=== PATIENT | female | born 1985 | race Caucasian/White ===

== ENCOUNTER 2024-02-25 19:23 | Outpatient (REF) | payer MEDICARE, MEDICAID, SELFPAY ==
[2024-02-26 11:07] LABS: Bacterial Vaginosis PCR POSITIVE (Negative); Candida Group PCR NOT DETECTED (Not Detect); Candida glab krusei PCR NOT DETECTED (Not Detect); Trichomonas vaginalis PCR NOT DETECTED (Not Detect)
[2024-03-04 01:14] LABS: HPV 16 RNA DETECTED (NOT DETECTED); HPV mRNA E6/E7 Detected (Not Detected)
== END 2024-02-25 19:24 | disposition home or self-care (01) ==
LOC: HO.HHCLNP 19:23
PROVIDERS: Visit Provider Advanced Practice Midwife
DX: R87.612 Low grade squamous intraepithelial lesion on cytologic smear of cervix (LGSIL) (principal); R87.810 Cervical high risk human papillomavirus (HPV) DNA test positive; N89.8 Other specified noninflammatory disorders of vagina
CPT/HCPCS: 0352U; 36415; 87624; 87625; 88175

== ENCOUNTER 2025-05-31 09:41 | Outpatient (REF) | payer MEDICARE, MEDICAID, SELFPAY ==
--- OUTSIDE RECORDS SUMMARY | 2025-05-31 09:30 | XMS_ITS | Encounter Summary ---
Author Organization [employer] Address [address] [place] [address] 7[address] [place] [address] Care Team Providers Care Informatics Nurse Specialist Name Role Phone Riki Padilla MD Primary Care Prov ider Reason for Visit * Reason Comments OBAT Encounter Details Date Type Department Care Team (Latest Contact Info) Description 05/31/2025 9:30 AM EDT Office Visit [facility] [address] [place] [address] Janes Christianson MD [address] [place] [address] Uncomplicated opioid dependence (CMS/HCC) (Primary Dx) Social History Tobacco Use Types Packs/Day Years Used Date Smoking Tobacco: Never Smokeless Tobacco: Never Alcohol Use Standard Drinks/Week Comments Never 0 (1 standard drink = 0.6 oz pur e alcohol) Depression Answer Date Recorded Patient Health Questionnaire-9 Score 17 03/23/2024 Patient Health Questionnaire-9 Score 17 03/23/2024 Last PHQ-9: Questionnaire Data Not on file 0 03/23/2024 Depression Answer Date Recorded Patient Health Questionnaire-2 Score 5 03/23/2024 Comments No Sex and Gender Information Value Date Recorded Sex Assigned at Female 07/02/2022 10:34 AM EDT Legal Sex Female 10:34 AM EDT Gender Identity Female 07/02/2022 10:34 AM EDT Sexual Orientation Bisexual 07/02/2022 10 :34 AM EDT documented as of this encounter Progress Notes * Janes Christianson MD - 05/31/2025 9:30 AM EDT Patient here today for Opioid Dependence RV. Patient on current Suboxone dose of 16/4 mg on an every 8 week schedule. Pt has been in the program for 6 years 11 month. Induction date: 06/17/18 (Has been on Suboxone since 2013). Patient actively enrolled in behavioral health services, sees therapist Indu Kent at [facility] on a weekly basis. MIGUE CORTES reviewed by provider. Control Method: States not engaged in sex currently; declined BCM; last Depo-Provera was on 02/24/2024 Long overdue for LFT (encouraged to get labs done today) Hep B immune Hep A #2 given 03/23/2019 LAST OBAT VISIT 03/08/2025 UTOX NOT CHECKED TODAY Patient presents for OUD OBAT visit MAT at [facility] for 6 years; previously at [facility] for 6 years Doing well overall without cravings or relapse Was on Depo-Provera for BCM, but last received 02/2024; states she is not engaged in sexual intercourse at this time [place] her libido went down after starting Depo-Provera (she was also started on stimulant medicationfor ADD) Has a teenage daughter (in IEP) Suboxone dosing schedule of 16/4mg daily and management of side effects reviewed Recovery support, harm reduction, and behavioral health attendance reviewed Patient expressed understanding and agreement with continuing plan of care Previously had LSIL with HPV+ in 04/2021 Then ASCUS with HPV+ in 12/2022 Most recently NILM with HPV+ in 02/2024 Previously referred to Gyne for colposcopy with Dr. Abdias Roach at [facility] (referral info provided for the patient) Follow up in 12 weeks due to holiday schedule TODAY OBAT VISIT 05/31/2025 UTOX: POS BUP, AMP NEG FOR ALL OTHER SUBSTANCES Patient presents for OUD OBAT visit MAT at [facility] for 6 years; previously at [facility] for 6 years Doing well overall without cravings or relapse Was on Depo-Provera for BCM, but last received 02/2024; states she is not engaged in sexual intercourse at this time [place] her libido went down after starting Depo-Provera (she was also started on stimulant medicationfor ADD) Has a teenage daughter (in IEP) Suboxone dosing schedule of 16/4mg daily and management of side effects reviewed Recovery support, harm reduction, and behavioral health attendance reviewed Patient expressed understanding and agreement with continuing plan of care Previously had LSIL with HPV+ in 04/2021 Then ASCUS with HPV+ in 12/2022 Most recently NILM with HPV+ in 02/2024 Previously referred to Gyne for colposcopy with Dr. Abdias Roach at [facility] (referral info provided for the patient) Traveling outside the country next month Follow up in 8 weeks Review of Systems Psychiatric/Behavioral: Negative for behavioral problems and dysphoric mood. The patient is not nervous/anxious. Physical Exam Constitutional: Appearance: Normal appearance. Pulmonary: Effort: Pulmonary effort is normal. Neurological: Mental Status: She is alert. Psychiatric: Mood and Affect: Mood normal. Behavior: Behavior normal. Whitney was seen today for obat. Diagnoses and all orders for this visit: Uncomplicated opioid dependence (CMS/HCC) (Primary) - POCT CELIO-14 Urine Drug Screen - Hepatic Function Panel; Future Patient presents for a routine OUD OBAT visit Discussed treatment options for opioid dependence Patient is tolerating current treatment of Buprenorphine/Naloxone SL Discussed behavioral modification and accessing services Counseling provided with a focus on support system, tools for achieving/maintaining recovery Reviewed barriers for these goals Discussed strategies to address when faced situations that may trigger use Continue with current visit schedule Check LFT Narcan use discussed [place] reviewed Reviewed risk assessment for family planning, STI and PrEP Follow up in 8 weeks This information has been disclosed to you from records protected by federal confidentiality rules (42 CFR Part 2). The federal rules prohibit you from making any further disclosure of information inthis record that identifies a patient as having or having had a substance use disorder either directly, by reference to publicly available information, or through verification of such identification by another person unless further disclosure is expressly permitted by the written consent of the individual whose information is being disclosed or as otherwise permitted by (see2.3.1). The federal rules restrict any use of the information to investigate or prosecute with regard to a crime any patient with a substance use disorder, except as provided at 2.12??(5) and 2.65. documented in this encounter Plan of Treatment Upcoming Encounters Date Type Department Care Team (Late st Contact Info) Description 07/26/2025 10:00 AM EST Office Visit [facility] [address] [place] [address] Janes Christianson MD [address] [place] [address] Scheduled Orders Name Type Priority Associated Diagnoses Orde r Schedule Hepatic Function Panel Lab Routine Uncomplicated opioid dependence (CMS/HCC) Expected: 05/31/2025 (Approximate), Expires: 05/31/2026 documented as of this encounter Goals Goal Patient Goal Type Associated Problems Recent Progress Patient-Stated? Author Look into education opportunities. General Yes Malgorzata Morales RN documented as of this encounter Procedures Procedure Name Priority Date/Time Associated Diagnosis Comments POCT CELIO-14 URINE DRUG SCREEN Routine 05/31/2025 9:27 AM EDT Uncomplicated opioid dependence (CMS/HCC) documented in this encounter Results * (ABNORMAL) POCT CELIO-14 Urine Drug Screen (05/31/2025 9:27 AM EDT) THC Negative Negative Cocaine Screen, Urine Negative Negative Opiate Screen, Urine Negative Negative Methamphetamine Screen Urine Negative Negative Amphetamine Screen, Urine Positive(A) Negative Benzodiazepines Screen, Urine Negative Negative Barbiturate Screen, Urine Negative Negative Methadone Screen, Urine Negative Negative Buprenophine Screen, Urine Positive(A) Negative TCA, Urine Negative Negative MDMA Urine Negative Negative ng/mL Oxycodone Screen, Urine Negative Negative Phencyclidine (PCP), Urine Negative Negative Fentanyl, Urine Negative Negative Urine Urine specimen obtained by clean catch procedure / Unknown 05/31/2025 9:27 AM EDT us Janes Christianson MD POINT OF CARE TEST ENTER/EDIT OR DERABLES Final Result documented in this encounter Visit Diagnoses Diagnosis Uncomplicated opioid dependence (CMS/HCC) (HCC)- Primary documented in this encounter Additional Health Concerns Assessment Noted Time PHQ-9 Depression Total Score: 17 07/22/2 024 11:24 AM EDT documented as of this encounter Care Teams Informatics Nurse Specialist Relationship Specialty Start Date End Date Riki Padilla MD [address] [place] [phone] PCP - General Internal Medicine 01/26/20 documented as of this encounter
--- OUTSIDE RECORDS SUMMARY | 2025-05-31 10:34 | XMS_ITS | Encounter Summary ---
Author Organization [employer] Address [address] [place] [address] Care Team Providers Care Apprentice Plant Attendant Name Role Phone Riki Padilla MD Primary Care Prov ider Encounter Details Date Type Department Care Team (Late Contact Info) Description 02/04/2023 Abstract [facility] PEDS [address] [place] [address] Riki Padilla MD [address] [place] [address] Social History Tobacco Use Types Packs/Day Years Used Date Smoking Tobacco: Never Smokeless Tobacco: Never Comments No Sex and Gender Information Value Date Recorded Sex Assigned at Female 07/02/2022 10:34 AM EDT Legal Sex Female 10:34 AM EDT Gender Identity Female 07/02/2022 10:34 AM EDT Sexual Orientation Bisexual 07/02/2022 10 :34 AM EDT COVID-19 Exposure Response Date Recorded In the last 10 days, have yo u been in contact with someone who was confirmed or suspected to have Coronavirus/COVID-19? No / Unsure 01/29/2023 10:45 AM EDT documented as of this encounter Plan of Treatment Upcoming Encounters Date Type Department Care Team (Late Contact Info) Description 07/26/2025 10:00 AM EST Office Visit [facility]ED[facility] [address] [place], [place] [phone] Janes Christianson MD [address] [place] [address] [phone] documented as of this encounter Visit Diagnoses Not on filedocumented in this encounter Care Teams Apprentice Plant Attendant Relationship Specialty Start Date End Date Riki Padilla MD [address] [place] [address] PCP - General Internal Medicine 01/26/20 documented as of this encounter
--- OUTSIDE RECORDS SUMMARY | 2025-05-31 10:34 | XMS_ITS | Encounter Summary ---
Author Organization [employer] Address [address] [place] [address] Care Team Providers Care Securities Broker Name Role Phone Riki Padilla MD Primary Care Prov ider Reason for Visit * Reason Comments Med Refill Encounter Details Date Type Department Care Team (Late st Contact Info) Description 05/25/2025 Refill [facility]EDS [address] [place] [address] Riki Padilla MD [address] [place] [address] Social History Tobacco Use Types Packs/Day Years [...] AM EDT documented as of this encounter Miscellaneous Notes * Telephone Encounter - Hayde Draper - 05/28/2025 8:23 AM EDT Tc fom pt requesting a call back to discuss update on refill Contact pt at [phone] documented in this encounter Plan of Treatment Upcoming Encounters Date Type Department Care Team ([facility] st Contact Info) Description 07/26/2025 10:00 AM EST Office Visit [facility] MED & PEDS [address] [place], [place] [phone] Janes Christianson MD [address] [place] [address] documented as of this encounter Goals Goal Patient Goal Type Associated Problems Recent Progress Patient-Stated? Author Look into education opportunities. General Yes Malgorzata Morales, RN documented as of this encounter Visit Diagnoses Not on filedocumented in this encounter Additional Health Concerns Assessment Noted Time PHQ-9 Depression Total Score: 17 024 11:24 AM EDT documented as of this encounter Care Teams Securities Broker Relationship Specialty Start Date End Date Riki Padilla MD [address] [place], [place] [phone] PCP - General Internal Medicine 01/26/20 documented as of this encounter
--- OUTSIDE RECORDS SUMMARY | 2025-05-31 10:34 | XMS_ITS | Encounter Summary ---
Author Organization [employer] Address [address] [place] [address] Care Team Providers Care President + Publisher Name Role Phone Riki Padilla MD Primary Care Prov ider Reason for Visit * Reason Comments Med Refill Encounter Details Date Type Department Care Team (Late st Contact Info) Description 01/22/2025 Refill [facility] PEDS [address] [place] [address] Riki Padilla MD [address] [place] [address] Social History Tobacco Use Types Packs/Day Years [...] Description 07/26/2025 10:00 AM EST Office Visit [facility]EDS [address] [place] [address] Janes Christianson MD [address] [place] [address] documented as of this encounter Goals Goal Patient Goal Type Associated Problems Recent Progress Patient-Stated? Author Look into education opportunities. General Yes Malgorzata Morales RN documented as of this encounter Visit Diagnoses Not on filedocumented in this encounter Additional Health Concerns Assessment Noted Time PHQ-9 Depression Total Score: 17 024 11:24 AM EDT documented as of this encounter Care Teams President + Publisher Relationship Specialty Start Date End Date Riki Padilla MD [address] [place] [address] PCP - General Internal Medicine 01/26/20 documented as of this encounter
--- OUTSIDE RECORDS SUMMARY | 2025-05-31 10:34 | XMS_ITS | Encounter Summary ---
Author Organization [employer] Address [address] [place] [address] [address] [place] [address] Care Team Providers Care Hand Deicer Element Winder Name Role Phone Riki Padilla MD Primary Care Prov ider Encounter Details Date Type Department Care Team (Latest Contact Info) Description 05/31/2025 Travel Social History Tobacco Use Types Packs/Day Years [...] Description 07/26/2025 10:00 AM EST Office Visit [facility] & PEDS [address] [place] [address] Janes Christianson MD [address] [place], [place] [phone] documented as of this encounter Goals Goal Patient Goal Type Associated Problems Recent Progress Patient-Stated? Author Look into education opportunities. General Yes Malgorzata Morales, RN documented as of this encounter Visit Diagnoses Not on filedocumented in this encounter Additional Health Concerns Assessment Noted Time PHQ-9 Depression Total Score: 17 024 11:24 AM EDT documented as of this encounter Care Teams Hand Deicer Element Winder Relationship Specialty Start Date End Date RobertsRiki Jaquez MD [address] [place] [phone] PCP - General Internal Medicine 01/26/20 documented as of this encounter
--- OUTSIDE RECORDS SUMMARY | 2025-05-31 10:34 | XMS_ITS | Encounter Summary ---
Author Organization [employer] Address [address] [facility] [address]t [place] [address] Care Team Providers Care Patient Observer Name Role Phone Riki Padilla MD Primary Care Prov ider Reason for Referral * Consultation (Urgent) - Closed Specialty Diagnoses / Procedures Referred By Contac t Referred To Contact Obstetrics and Gynecology Diagnoses Cervical high risk human papillomavirus (HPV) DNA test positive Jessica Rodrigues CNM [address] [place] [address] Phone: tel: fax: [facility] [address] (Main Hospital Entrance) [place], [place] Phone: tel: fax: Referral ID Status Reason Start Date Expiration Date V isits Requested Visits Authorized [id number] Closed Specialty Services Required 03/04/2024 03/04/2025 1 1 Encounter Details Date Type Department Care Team (Late st Contact Info) Description 03/04/2024 Orders Only [facility] [address] [place] [address] Jessica Rodrigues CNM [address] [place] [address] Cervical high risk human papillomavirus (HPV) DNA test positive (Primary Dx) Social History Tobacco Use Types Packs/Day Years Used Date Smoking Tobacco: Never Smokeless Tobacco: Never Alcohol Use Standard Drinks/Week Comments Never 0 (1 standard drink = 0.6 oz pur e alcohol) Comments No Sex and Gender Information Value Date Recorded Sex Assigned at Female 07/02/2022 10:34 AM EDT Legal Sex Female 10:34 AM EDT Gender Identity Female 07/02/2022 10:34 AM EDT Sexual Orientation Bisexual 07/02/2022 10 :34 AM EDT documented as of this encounter Plan of Treatment Upcoming Encounters Date Type Department Care Team ([facility] st Contact Info) Description 07/26/2025 10:00 AM EST Office Visit [facility] [address] [place] [address] Janes Christianson MD [address] [place] [address] Scheduled Referrals Name Type Priority Associated Diagnoses Orde r Schedule Referral to Obstetrics / Gynecology Outpatient Referral Urgent Cervical high risk human papillomavirus (HPV) DNA test positive Expected: 03/04/2024 (Approximate), Expires: 03/04/2025 documented as of this encounter Visit Diagnoses Diagnosis Cervical high risk human papillomavirus (HPV) DNA test positive- Primary documented in this encounter Care Teams Patient Observer Relationship Specialty Start Date End Date Riki Padilla MD [address] [place] [address] PCP - General Internal Medicine 01/26/20 documented as of this encounter
--- OUTSIDE RECORDS SUMMARY | 2025-05-31 10:34 | XMS_ITS | Encounter Summary ---
Author Organization [employer] Address [address] [place] [address] Care Team Providers Care Alcohol Still Operator Name Role Phone Riki Padilla MD Primary Care Prov ider Reason for Visit * Reason Comments Med Refill Encounter Details Date Type Department Care Team (Late st Contact Info) Description 01/22/2025 Refill [facility]S [address] [place] [address] Riki Padilla MD [address] [place] [address] Social History Tobacco Use Types Packs/Day Years [...] Description 07/26/2025 10:00 AM EST Office Visit [facility] [address] [place] [address] Janes Christianson MD [address] [place] [address] documented as of this encounter Goals Goal Patient Goal Type Associated Problems Recent Progress Patient-Stated? Author Look into education opportunities. General Yes Malgorzata Morales RN documented as of this encounter Visit Diagnoses Not on filedocumented in this encounter Additional Health Concerns Assessment Noted Time PHQ-9 Depression Total Score: 17 024 11:24 AM EDT documented as of this encounter Care Teams Alcohol Still Operator Relationship Specialty Start Date End Date Riki Padilla MD [address] [place] [address] PCP - General Internal Medicine 01/26/20 documented as of this encounter
--- OUTSIDE RECORDS SUMMARY | 2025-05-31 10:34 | XMS_ITS | Encounter Summary ---
Author Organization [employer] Address [address] [place] [address] [address] [place] [address] Care Team Providers Care Combat Rifle Crewmember Name Role Phone Riki Padilla MD Primary Care Prov ider Reason for Visit * Reason Onset Date Comments PA 10/21/2024 Encounter Details Date Type Department Care Team ([facility] Contact Info) Description 10/21/2024 Telephone [facility] [address] [place] [address] Riki Padilla MD [address] [place] [address] [place] Social History Tobacco Use Types Packs/Day Years [...] encounter Miscellaneous Notes * Telephone Encounter - Ann Saldaña - 10/21/2024 9:12 AM EST Tc from pt calling in requesting status on medication amphetamine- dextroamphetamine XR (Adderall XR) 20 MG 24 hr capsule. Pharmacy informs PA is needed. documented in this encounter Plan of Treatment Upcoming Encounters Date Type Department Care Team (Late st Contact Info) Description 07/26/2025 10:00 AM EST Office Visit [facility] MED & PEDS [address] [place], [place] [phone] Janes Christianson MD [address] [place] [address] documented as of this encounter Visit Diagnoses Not on filedocumented in this encounter Additional Health Concerns Assessment Noted Time PHQ-9 Depression Total Score: 17 024 11:24 AM EDT documented as of this encounter Care Teams Combat Rifle Crewmember Relationship Specialty Start Date End Date Riki Padilla MD [address] [place] [address] PCP - General Internal Medicine 01/26/20 documented as of this encounter
--- OUTSIDE RECORDS SUMMARY | 2025-05-31 10:34 | XMS_ITS | Clinical Summary ---
Author Organization [employer] Address [address] [place] [address] 7[address] [place] [address] Care Team Providers Care Ceo & Founder Name Role Phone Riki Padilla MD Primary Care Prov ider Allergies No known active allergies Medications * This document contains information received from the source organization and may not represent a complete record from that organization. naloxone (Narcan) 4 mg/0.1 mL nasal spray Administer 0.1 mL into affected nostril(s). May repeat dose every 2-3 minutes as needed alternating nostrils with each dose 020 Active medroxyPROGESTER one (Depo-Provera) 150 MG/ML injectionIndicat ions:Encounter for contraceptive management, unspecified type Inject 1 mL (150 mg) into the shoulder, thigh, or buttocks every 3 (three) months. 1 mL 024 Active clotrimazole (Lotrimin) 1 % vaginal creamIndications :Vulvovaginal Candidiasis Insert one applicator per vagina at bedtime for 7 nights 45 g 024 Active amphetamine-dext roamphetamine XR (Adderall XR) 20 MG 24 hr capsule Take 1 capsule (20 mg) by mouth in the morning. Do not crush or chew. 30 capsule 024 Active amphetamine-dext roamphetamine XR (Adderall XR) 20 MG 24 hr capsule Take 1 capsule (20 mg) by mouth in the morning. Do not crush or chew. Do not start before August 11, 2024. 30 capsule 024 Active Adderall XR 20 MG 24 hr capsule TAKE ONE CAPSULE EVERY MORNING 30 capsule Active Suboxone 8-2 MG SL filmIndications: Opioid dependence, uncomplicated (CMS/HCC) (HCC) Place 2 Film under the tongue Once per day. Do not start before May 31, 2025. 56 Film 1 025 2024 Active Suboxone 8-2 MG SL filmIndications: Opioid dependence, uncomplicated (CMS/HCC) (HCC) Place 2 Film under the tongue Once per day. 56 Film 2 025 2024 Discontinued(R eorder (will not trigger notification to Pharmacy)) amphetamine-dext roamphetamine XR (Adderall XR) 20 MG 24 hr capsule TAKE ONE CAPSULE BY MOUTH EVERY MORNING 30 capsule 025 2024 Discontinued Active Problems Problem Noted Date Diagnosed Date Attention deficit hyperactiv ity disorder (ADHD), predominantly inattentive type 05/14/2024 Assessment & Plan (07/28/2024 9:55 AM EST): Symptoms improved with increased dose of 20mg, denied side effects, will continue same treatment Assessment & Plan (06/12/2024 10:08 AM EDT): Patient tolerated medication, no reported side effects, will increase dose to 10mg for 1 week then 20mg daily, follow up in 4-6 weeks, pending psych evaluation Assessment & Plan (05/14/2024 9:51 AM EDT): Patient having issues at completing home task, finishing jobs, will start adderrall, she has a upcoming follow up with psych told to follow up with him Low libido 05/14/2024 Assessment & Plan (05/14/2024 9:52 AM EDT): Most likely related to MDD, she wants to stop getting the depo shot, risk of getting discussed as well as alternative contraceptive methods. Moderate episode of recurren t major depressive disorder (CMS/HCC) 03/23/2024 Assessment & Plan (03/23/2024 11:54 AM EDT): PROGRESS NOTE: ID: Whitney is a 38 y.o. White bisexual-identified cis-female with self reported history of Depression and Anxiety services including OP Psychotherapy psychopharmacology No previous hx of MH dx or sx who presents for Anxiety and Depression During IBH Consult Whitney presenting with depressed mood, loss of interests/pleasure , changes in sleep difficulty falling asleep, difficulty staying asleep , and restless, unsatisfying sleep, change in appetite or weight reduce appetite, psychomotor retardation, trouble concentrating, thoughts of worthlessness or guilt, fatigue/loss of energy, thoughts of and excessive worry/anxiety, difficulty controlling worry, restless/keyed up/On edge, easily fatigued, difficulty concentrating/Mind going blank , irritability, muscle tension, and sleep disturbance difficulty falling asleep, difficulty staying asleep , and restless, unsatisfying sleep. 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 PLAN: (check all that apply) New/Additional Services needed Off-site services for Behavioral Health Integration Plan External OP therapy referral and OP psychiatry Referral Patient Self Plan Patient to utilize skills provided in intervention , Patient to reach out to [facility] team as needed, Comply with medication , Patient to engage in OP therapy , and Patient to reach out to [facility] as needed Severe anxiety 03/23/2024 Opioid dependence in remission (CMS/HCC) 024 Encounters Date Type Department Care Team Description 05/31/2025 9:30 AM EDT Office Visit [facility] MED & PEDS [address] [place] [address] Janes Christianson MD Uncomplicated opioid dependence (CMS/HCC) (Primary Dx) 05/31/2025 Travel 05/26/2025 Refill [facility] MEDICINE [address] [place], [place] [phone] Malgorzata Morales RN Opioid dependence, uncomplicated ([facility]/HCC) 05/25/2025 Refill [facility] MED & PEDS [address] [place] [address] Riki Padilla MD 04/22/2025 Refill [facility] MED & PEDS [address] [place] [address] Riki Padilla MD 03/23/2025 Refill [facility] MED & PEDS [address] [place] [address] Riki Padilla MD 03/08/2025 9:30 AM EDT Office Visit [facility] MED & PEDS [address] [place] [address] Janes Christianson MD Opioid type dependence, continuous (CMS/HCC) (Primary Dx) 03/08/2025 Travel 03/02/2025 Refill [facility] MEDICINE [address] [place] [address] Janes Christianson MD Opioid dependence, uncomplicated (CMS/HCC) from Last 3 Months Immunizations Immunization Administration Dates Next Due Hep A, Adult 03/23/2019,07/29/2018 Influenza injectable quadriv alent preservative free 06/17/2023,06/04/2022,06/09/2018 Influenza, IIV3, injectable 07/16/2007 Tdap 06/09/2018 Social History Tobacco Use Types Packs/Day Years Used Date Smoking Tobacco: Never Smokeless Tobacco: Never Tobacco Cessation:Counseling Given: Not Answered Alcohol Use Standard Drinks/Week Comments Never 0 [...] Orientation Bisexual 07/02/2022 10 :34 AM EDT Last Filed Vital Signs Vital Sign Reading Time Taken Comments Blood Pressure 132/86 05/14/2024 9:33 AM EDT Pulse 100 05/14/2024 9:33 AM EDT Temperature 37.1 C (98.7 F) 05/14/2024 9:33 AM EDT Respiratory Rate 20 05/14/2024 9:33 AM EDT Oxygen Saturation 98% 02/25/2024 2:50 PM EDT Inhaled Oxygen Concentration - - Weight 44.5 kg (98 lb) 05/14/2024 9:33 AM EDT Height 157.5 cm (5' 2 ) 05/14/2024 9:33 AM EDT Body Mass Index 17.92 05/14/2024 9:33 AM EDT Plan of Treatment Upcoming Encounters Date Type Department Care Team (Late st Contact Info) Description 07/26/2025 10:00 AM EST Office Visit [facility] MED & PEDS [address] [place] [address] Janes Christianson MD [address] [place] [address] Health Maintenance Due Date Last Done Comments SDOH Screening 1987 Disability Screening 1987 Alcohol/Substance Use Screening 1999 Family Planning (PISQ) 2002 HPV Vaccines (1 - 3-dose series) 2002 Hepatitis B Vaccines (1 of 3 - 19+ 3-dose series) 2006 Colposcopy 02/26/2024 Depression Monitoring 09/23/2024 03/23/2024, 024 COVID-19 Vaccine ( season) 2025 06/05/2021, 05/15/2021 Influenza Vaccine (#1) 2025 , 06/04/2022, 06/09/2018, Additional history exists Tobacco Screening 05/14/2025 05/14/2024 Pap Smear 02/24/2027 02/25/2024, 05/3 , 04/04/2021 DTaP/Tdap/Td Vaccines (2 - Td or Tdap) 06/09/2028 06/09/2018 Cervical Cancer Screening 02/24/2029 HPV/Cotest 02/24/2029 02/25/2024, 01/02, 04/04/2021 Zoster Vaccines (1 of 2) 2037 RSV Patients and Patients Aged 60 years or older (1 - 1-dose 75+ series) 2062 Hepatitis A Vaccines Aged Out 03/23/2019, 07/29/20 18 No longer eligible based on patient's age to complete this topic HIV Screening Completed 10/30/2021 Hepatitis C Screening Completed 10/30/2021 HIB Vaccines Aged Out No longer eligi ble based on patient's age to complete this topic IPV Vaccines Aged Out No longer eligi ble based on patient's age to complete this topic Meningococcal B Vaccine Aged Out No l onger eligible based on patient's age to complete this topic Meningococcal Vaccine Aged Out No eliana kojo eligible based on patient's age to complete this topic Pneumococcal Vaccine: Pediatrics (0 to 5 Years) and At-Risk Patients (6 to 49) Years Aged Out No longer eligible based on patient's age to complete this topic RSV under 20 months Aged Out No longe r eligible based on patient's age to complete this topic Rotavirus Vaccines Aged Out No longer eligible based on patient's age to complete this topic Goals Goal Patient Goal Type Associated Problems Recent Progress Patient-Stated? Author Look into education opportunities. General Yes Malgorzata Morales RN Procedures Procedure Name Priority Date/Time Associated Diagnosis Comments POCT CELIO-14 URINE DRUG SCREEN Routine 05/31/2025 9:27 AM EDT Uncomplicated opioid dependence (CMS/HCC) THINPREP IMAGING PAP AND HPV MRNA E6/E7 WITH REFLEX TO HPV 16,18/45 Routine 02/25/2024 12:00 AM EDT ZZZ HISTORICAL HEPATITIS C AB W/REFL TO HCV RNA, QN, PCR Routine 10/30/2021 9:26 AM EST HIV 1/2 ANTIGEN/ANTIBODY, FOURTH GENERATION W/RFL Routine 10/30/2021 9:26 AM EST from Last 3 Months or Most Recently Relevant to Health Maintenance Results * (ABNORMAL) POCT CELIO-14 Urine Drug [...] procedure / Unknown 05/31/2025 9:27 AM EDT Janes Christianson MD POINT OF CARE TEST ENTER/EDIT OR DERABLES Final Result * (ABNORMAL) ThinPrep Imaging Pap and HPV mRNA E6/E7 with Reflex to HPV 16,18/45 (02/25/2024 12:00 AMEDT) Pathologist [facility] HPV 16 RNA DETECTED(A ) NOT DETECTED [facility] HPV 18/45 RNA NOT DETECTED NOT DETECTED [facility] Comment:Methodology: Transcr iption Mediated AmplificationCervical sources are required for HPV testing.If a vaginal source from a patient who has had atotal hysterectomy with removal of cervix wassubmitted, please contact the testing laboratoryfor alternative testing options.THIS TEST WAS PERFORMED AT:[facility] [place] [id number] MCKINNEY MD HPV nRNA E6/E7 Detected(A ) Not Detected [facility] Comment:Methodology: Transcr iption-Mediated AmplificationThis assay detects E6/E7 viral messenger RNA (mRNA) from 14high-risk HPV types (16,18,31,33,35,39,45,51,52,56,58,59,66,68).Cervical sources are required for HPV testing.If a vaginal source from a patient who has had atotal hysterectomy with removal of cervix wassubmitted, please contact the testing laboratoryfor alternative testing options.For additional information, please refer tohttp://education.Spunkmobile/faq/EEU030c8(This link if provided for information/educational purposes only.) SOURCE: SEE NOTE [facility] Comment:Cervix Report Status: [facility] Clinical Information: SEE NOTE [facility] Comment:ROUTINE LMP: SEE NOTE [facility] Comment:NONE GIVEN Prev. PAP: SEE NOTE [facility] Comment:2022 Prev. BX: SEE NOTE [facility] Comment:NONE GIVEN Statement Of Adequacy: SEE NOTE [facility] Comment:SATISFACTORY FOR MIGUEL LUATION General Categorization: [facility] Interpretation/Result: SEE NOTE [facility] Comment:Cytology Results: Ne gative for intraepitheliallesion or malignancy.Atrophic pattern; predominantly parabasal cells Cytology Comment SEE NOTE [facility] Comment:This Pap test has be en evaluated with computerassisted technology. Aws Consultant: SEE NOTE [facility] Comment:MRC, CT(ASCP) CT scr eening location: [address] [address] Review Aws Consultant: SEE NOTE [facility] Comment:SXA, CT(ASCP)CT scre ening location: [address] [address] Pathologist [facility] PAP Infection [facility] See Note SEE NOTE [facility] Comment:EXPLANATORY NOTE:The Pap is a screening test for cervical cancer. It isnot a diagnostic test and is subject to false negativeand false positive results. It is most reliable when asatisfactory sample, regularly obtained, is submittedwith relevant clinical findings and history, and whenthe Pap result is evaluated along with historic andcurrent clinical information. 02/25/2024 02/25/2024 Narrative [facility] - 03/04/2024 8:51 AM EDT SEE SCANNED REPORT IN [id number] us Jessica CAMACHO LAB PATHOLOGY ORDERABLES Final Result [facility] [address] [place] [address] [phone] * HEPATITIS C AB W/REFL TO HCV RNA, QN, PCR (10/30/2021 9:26 AM EST) HEPATITIS C ANTIBODY NON-REACT LUC NON-REACT LUC [facility] INDEX 0.01 <1.00 [facility] Comment: HCV antibody was non-reactive. There is no laboratory evidence of HCV infection. In most cases, no further action is required. However, if recent HCV exposure is suspected, a test for HCV RNA (test code 50171) is suggested. For additional information please refer to http://Shopogoliq.Spunkmobile/faq/RUZ23e6 (This link is being provided for informational/ educational purposes only.) 10/30/2021 9:26 AM EST us Janes Christianson MD HISTORICAL/NON ORDERABLE LABS Fi nal Result [facility] [address] * HIV 1/2 ANTIGEN/ANTIBODY,FOURTH GENERATION W/RFL (10/30/2021 9:26 AM EST) HIV-1/2 ANTIGEN AND ANTIBODIES, 4TH GENERATION W/ REFLEX NON-REACT LUC NON-REACT LUC [facility] Comment: HIV-1 antigen and HIV-1/HIV-2 antibodies were not detected. There is no laboratory evidence of HIV infection. PLEASE NOTE: This information has been disclosed to you from records whose confidentiality may be protected by state law. If your state requires such protection, then the state law prohibits you from making any further disclosure of the information without the specific written consent of the person to whom it pertains, or as otherwise permitted by law. A general authorization for the release of medical or other information is NOT sufficient for this purpose. For additional information please refer to http://Shopogoliq.Spunkmobile/faq/YMF210 (This link is being provided for informational/ educational purposes only.) The performance of this assay has not been clinically validated in patients less than 2 years old. 10/30/2021 9:26 AM EST us Janes Christianson MD LAB BLOOD ORDERABLES Final Resul t [facility] [address] [place] [address], from Last 3 Months or Most Recently Relevant to Health Maintenance Insurance [facility] STAND[facility] MEDICARE Care Teams Ceo & Founder Relationship Specialty Start Date End Date Riki Padilla MD NPI: [id number] [place] [id number] PCP - General Internal Medicine 01/26/20
--- OUTSIDE RECORDS SUMMARY | 2025-05-31 10:34 | XMS_ITS | Encounter Summary ---
Author Organization [employer] Address [address] [place] [address] Care Team Providers Care Dipper Operator Name Role Phone Riki Padilla MD Primary Care Prov ider Encounter Details Date Type Department Care Team (Late Contact Info) Description 08/20/2022 Orders Only [facility] MEDICINE [address] [place], [place] [phone] Riki Padilla MD [address] [place], [place] [phone] Uses control (Primary Dx) Social History Tobacco Use Types Packs/Day Years Used Date Smoking Tobacco: Never Assessed Comments No Sex and Gender Information Value [...] suspected to have Coronavirus/COVID-19? No / Unsure 08/20/2022 9:56 AM EST documented as of this encounter Plan of Treatment Upcoming Encounters Date Type Department Care Team (Late Contact Info) Description 07/26/2025 10:00 AM EST Office Visit [facility] CH[facility] MED & PEDS [address] [place], [place] [phone] Janes Christianson MD [address] [place] [address] documented as of this encounter Visit Diagnoses Diagnosis Uses control- Primary documented in this encounter Care Teams Dipper Operator Relationship Specialty Start Date End Date Riki Padilla MD [address] [place] [address] PCP - General Internal Medicine 01/26/20 documented as of this encounter
--- OUTSIDE RECORDS SUMMARY | 2025-05-31 10:34 | XMS_ITS | Encounter Summary ---
Author Organization [employer] Address [address] [address] Care Team Providers Care Produce Weigher Name Role Phone Riki Padilla MD Primary Care Prov ider Reason for Visit * Reason Onset Date Comments Appointment Request 09/12/2023 Encounter Details Date Type Department Care Team (Late st Contact Info) Description 09/12/2023 Telephone [facility] MEDICINE [address] [place] [address] Riki Padilla MD [address] [place] [address] Appointment Request Social History Tobacco Use Types Packs/Day Years [...] encounter Miscellaneous Notes * Telephone Encounter - Kelsi Hathaway RN - 09/12/2023 11:22 AM EST Returned call to pt regarding message below. Pt agrees to [place] on 09/19/23 for Depo RV. * Telephone Encounter - Janessa Null - 09/12/2023 9:44 AM EST Tc from pt requesting depo appt, administrative underwriter attempted to schedule, no window available to make the appt. documented in this encounter Plan of Treatment Upcoming Encounters Date Type Department Care Team (Late st Contact Info) Description 07/26/2025 10:00 AM EST Office Visit [facility] MED [facility] PEDS [address] [place], [place] [phone] Janes Christianson MD [address] [place], [place] [phone] documented as of this encounter Visit Diagnoses Not on filedocumented in this encounter Care Teams Produce Weigher Relationship Specialty Start Date End Date RobertsRiki Jaquez MD [address] [place], [place] [phone] PCP - General Internal Medicine 01/26/20 documented as of this encounter
--- OUTSIDE RECORDS SUMMARY | 2025-05-31 10:34 | XMS_ITS | Encounter Summary ---
Author Organization [employer] Address [address] [place] [address] [address] [place] [address] Care Team Providers Care Cmm Operator Name Role Phone Riki Padilla MD Primary Care Prov ider Reason for Visit * Reason Onset Date Comments Med Refill 05/26/2025 Encounter Details Date Type Department Care Team (Late Contact Info) Description 05/26/2025 Refill [facility] [address] [place] [address] Malgorzata Morales, JASMINA Opioid dependence, uncomplicated (CMS/HCC) Social History Tobacco Use Types Packs/Day Years [...] Description 07/26/2025 10:00 AM EST Office Visit [facility] [address] [place], [place] [phone] Janes Christianson MD [address] [place] [address] documented as of this encounter Goals Goal Patient Goal Type Associated Problems Recent Progress Patient-Stated? Author Look into education opportunities. General Yes Malgorzata Morales, JASMINA documented as of this encounter Visit Diagnoses Diagnosis Opioid dependence, uncomplicated (CMS/HCC) (HCC) documented in this encounter Additional Health Concerns Assessment Noted Time PHQ-9 Depression Total Score: 17 024 11:24 AM EDT documented as of this encounter Care Teams Cmm Operator Relationship Specialty Start Date End Date Riki Padilla MD [address] [place] [address] PCP - General Internal Medicine 01/26/20 documented as of this encounter
--- OUTSIDE RECORDS SUMMARY | 2025-05-31 10:34 | XMS_ITS | Encounter Summary ---
Author Organization [employer] Address [address] [address] Care Team Providers Care Vulcanized Fiber Unit Operator Name Role Phone Riki Padilla MD Primary Care Prov ider Reason for Visit * Reason Onset Date Comments Med Refill 01/22/2025 Encounter Details Date Type Department Care Team (Late st Contact Info) Description 01/22/[address] [facility] MEDICINE [address] [place] [address] Riki Padilla MD [address] [place] [address] Med Refill Social History Tobacco Use Types Packs/Day Years [...] encounter Miscellaneous Notes * Telephone Encounter - Whitney Saini LPN - 01/22/2025 8:37 AM EDT Medication pended to PCP. * Telephone Encounter - Michel Peterson - 01/22/2025 8:31 AM EDT TC from pt requesting medication refill. Medications needing refill : amphetamine-dextroamphetamine XR (Adderall XR) 20 MG 24 hr capsule To be sent to: [facility] pharmacy documented in this encounter Plan of Treatment Upcoming Encounters Date Type Department Care Team (Late st Contact Info) Description 07/26/2025 10:00 AM EST Office Visit [facility] MED & PEDS [address] [place] [address] Janes Christianson MD [address] [place] [phone] documented as of this encounter Goals Goal Patient Goal Type Associated Problems Recent Progress Patient-Stated? Author Look into education opportunities. General Yes Malgorzata Morales, RN documented as of this encounter Visit Diagnoses Not on filedocumented in this encounter Additional Health Concerns Assessment Noted Time PHQ-9 Depression Total Score: 17 03/23/ 024 11:24 AM EDT documented as of this encounter Care Teams Vulcanized Fiber Unit Operator Relationship Specialty Start Date End Date Riki Padilla MD [address] [place] [address] PCP - General Internal Medicine 01/26/20 documented as of this encounter
--- OUTSIDE RECORDS SUMMARY | 2025-05-31 10:34 | XMS_ITS | Encounter Summary ---
Author Organization [employer] Address [address] [place] [address] [place] [address] Care Team Providers Care Tractor Distributor Name Role Phone Riki Padilla MD Primary Care Prov ider Reason for Visit * Reason Onset Date Comments Nurse Triage 02/25/2024 Encounter Details Date Type Department Care Team ([facility] st Contact Info) Description 02/25/2024 Telephone [facility] MED & PEDS [address] [place] [address] Riki Padilla MD [address] [place] [address] Nurse Triage Social History Tobacco Use Types Packs/Day Years [...] encounter Miscellaneous Notes * Telephone Encounter - Porsha Olguin RN - 02/25/2024 10:20 AM EDT Triage call Pt reports foul vaginal odor for several days. Pt reports scant vaginal drainage, oliva in color. Neg for pelvic pain /discomfort. Pt reports has been trying to get in to see FORMING AND ASSEMBLING SUPERVISOR at [facility].Apt with REYES Rodrigues 02/25/24 @ 245pm. Insurance is verified as active prior to booking. Protocol Used: Vaginal Discharge (Adult) Protocol-Based Disposition: See in Office or Video Visit Today Positive Triage Question: * Patient wants to be seen * All higher-acuity triage questions were negative Care Advice Discussed: * Reasons To Call Back - Discharge becomes yellow or green - Discharge becomes foul smelling or itchy - Fever or abdomen pain occur - You become worse * Telephone Encounter - Connie Gelacio - 02/25/2024 9:54 AM EDT Symptom: Vaginal Symptoms - Not Bleeding Outcome: Schedule an urgent appointment (within 4 hours) or talk to a nurse or provider soon Reason: Foul-smelling vaginal discharge The caller accepted this outcome Please contact pt at [phone] documented in this encounter Plan of Treatment Upcoming Encounters Date Type Department Care Team (Late st Contact Info) Description 07/26/2025 10:00 AM EST Office Visit [facility] MED & PEDS [address] [place], [place] [phone] Janes Christianson MD [address] [place] [phone] documented as of this encounter Visit Diagnoses Not on filedocumented in this encounter Care Teams Tractor Distributor Relationship Specialty Start Date End Date Riki Padilla MD [address] [place] [address] PCP - General Internal Medicine 01/26/20 documented as of this encounter
--- OUTSIDE RECORDS SUMMARY | 2025-05-31 10:34 | XMS_ITS | Encounter Summary ---
Author Organization [employer] Address [address] [place] [id number] Care Team Providers Care Candle Wrapping Machine Operator Name Role Phone Riki Padilla MD Primary Care Prov ider Reason for Visit * Reason Comments Med Refill Encounter Details Date Type Department Care Team (Late st Contact Info) Description 10/21/2024 Refill [facility] [address] [place] [address] Riki Padilla MD [address] [place] [address] Social History Tobacco Use Types Packs/Day Years [...] Description 07/26/2025 10:00 AM EST Office Visit [facility] [address] [place] [address] Janes Christianson MD [address] [place] [address] documented as of this encounter Visit Diagnoses Not on filedocumented in this encounter Additional Health Concerns Assessment Noted Time PHQ-9 Depression Total Score: 17 024 11:24 AM EDT documented as of this encounter Care Teams Candle Wrapping Machine Operator Relationship Specialty Start Date End Date Riki Padilla MD [address] [place] [address] PCP - General Internal Medicine 01/26/20 documented as of this encounter
[2025-05-31 14:44] LABS: Alanine Aminotransferase 21 U/L (0-31); Albumin Level 4.9 g/dL (3.5-5.0); Alkaline Phosphatase 50 U/L (39-117); Aspartate Amino Transferase 35 U/L (5-31); Total Protein 7.3 g/dL (6.5-8.0)
== END 2025-05-31 09:42 | disposition home or self-care (01) ==
LOC: HO.CHCLDS 09:41
PROVIDERS: Visit Provider Family Medicine
DX: F11.20 Opioid dependence, uncomplicated (principal)
CPT/HCPCS: 36415; 80076